=== PATIENT | male | born 1985 | race Caucasian/White ===

== ENCOUNTER 2022-05-17 16:42 | Emergency (ER) | payer BC, SELFPAY ==
--- NOTE | 2022-05-17 17:29 | PC.NURSE ---
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 Pt stated that the bleeding had stopped.
== END 2022-05-17 18:07 | disposition left against medical advice (07) ==
DX: S61.211A Laceration without foreign body of left index finger without damage to nail, initial encounter (principal); W26.0XXA Contact with knife, initial encounter; Y93.G1 Activity, food preparation and clean up
CPT/HCPCS: 99199